=== PATIENT | male | born 1965 | race Caucasian/White ===

== ENCOUNTER 2017-06-29 22:00 | Emergency (ER) | payer SELFPAY ==
[2017-06-29 22:19] VITALS: BP 111/62; PULSE 103; RESP 18; TEMP 98.6; O2SAT 98
--- NOTE | 2017-06-29 22:26 | PD ---
HPI Chief Complaint: OD/ Ingestion Time Seen by Provider: 22:18 Travel History International Travel<30 days: No Contact w/Intl Traveler<30days: No History of Present Illness HPI 52-year-old male brought in by ambulance under arrest for domestic battery. Patient originally was picked up with reports of taking "a bunch of pills", when she was picked up by the ambulance and they were going to stick it with a needle, he stated "what are you going to do For?" Patient then stated to the EMS personnel that he did not take anything, and that he "wanted to be somewhere for the store". He currently has no complaints, vital signs are stable, but he is currently under arrest and police are present. He has no known drug allergies. PFSH Past Medical History Asthma: Yes Ulcer: Yes Social History Alcohol Use: No Tobacco Use: Yes Substance Use: No Allergies-Medications (Allergen,Severity, Reaction): Coded Allergies: No Known Allergies (Verified , 06/29/17) Reported Meds & Prescriptions Reported Meds & Active Scripts Active Macrobid (Nitrofurantoin Monohydrate Macrocrystals) 100 Mg Capsule 100 Mg PO BID Review of Systems Except as stated in HPI: all other systems reviewed are Neg General / Constitutional: No: Fever Eyes: No: Visual changes HENT: No: Headaches Cardiovascular: No: Chest Pain or Discomfort Respiratory: No: Shortness of Breath Gastrointestinal: No: Abdominal Pain Genitourinary: No: Dysuria Musculoskeletal: No: Pain Skin: No Rash Neurologic: No: Weakness Psychiatric: No: Depression Endocrine: No: Polydipsia Hematologic/Lymphatic: No: Easy Bruising Physical Exam Narrative GENERAL: Patient is in no acute distress. SKIN: Warm and dry. Normal color. Normal turgor. HEAD: Atraumatic. Normocephalic. EYES: Pupils equal and round. No scleral icterus. No injection or drainage. ENT: No nasal bleeding or discharge. Mucous membranes pink and moist. Pharynx is clear. Airway is patent. NECK: Trachea midline. Supple and nontender. CARDIOVASCULAR: Regular rate and rhythm. No murmurs gallops or rubs. RESPIRATORY: No accessory muscle use. Clear to auscultation. Breath sounds equal bilaterally. GASTROINTESTINAL: Abdomen soft, non-tender, nondistended. Hepatic and splenic margins not palpable. MUSCULOSKELETAL: Extremities without clubbing, cyanosis, or edema. No obvious deformities. NEUROLOGICAL: Awake and alert. No obvious cranial nerve deficits. Motor grossly within normal limits. Five out of 5 muscle strength in the arms and legs. Normal speech. PSYCHIATRIC: Appropriate mood and affect; insight and judgment normal. Data Data Last Documented VS Vital Signs Date Time Temp Pulse Resp B/P (MAP) Pulse Ox O2 Delivery O2 Flow Rate FiO2 06/29/17 23:35 79 18 118/72 (87) 96 06/29/17 22:19 98.6 Orders Orders Complete Blood Count With Diff (06/29/17 22:17) Comprehensive Metabolic Panel (06/29/17 22:17) Urinalysis - C+S If Indicated (06/29/17 22:17) Electrocardiogram (06/29/17 22:17) Cath For Specimen (06/29/17 22:17) Drug Screen, Random Urine (06/29/17 22:17) Salicylates (Aspirin) (06/29/17 22:17) Tylenol (Acetaminophen) (06/29/17 22:17) Urine Culture (06/29/17 22:30) Labs Laboratory Tests Test 06/29/17 22:30 White Blood Count 8.9 TH/MM3 Red Blood Count 4.71 MIL/MM3 Hemoglobin 14.3 GM/DL Hematocrit 42.1 % Mean Corpuscular Volume 89.4 FL Mean Corpuscular Hemoglobin 30.3 PG Mean Corpuscular Hemoglobin Concent 33.9 % Red Cell Distribution Width 13.6 % Platelet Count 241 TH/MM3 Mean Platelet Volume 7.7 FL Neutrophils (%) (Auto) 70.4 % Lymphocytes (%) (Auto) 20.9 % Monocytes (%) (Auto) 7.4 % Eosinophils (%) (Auto) 0.8 % Basophils (%) (Auto) 0.5 % Neutrophils # (Auto) 6.3 TH/MM3 Lymphocytes # (Auto) 1.9 TH/MM3 Monocytes # (Auto) 0.7 TH/MM3 Eosinophils # (Auto) 0.1 TH/MM3 Basophils # (Auto) 0.0 TH/MM3 CBC Comment DIFF FINAL Differential Comment Urine Color YELLOW Urine Turbidity HAZY Urine pH 5.5 Urine Specific [place] 1.042 Urine Protein 100 mg/dL Urine Glucose (UA) NEG mg/dL Urine Ketones TRACE mg/dL Urine Occult Blood NEG Urine Nitrite NEG Urine Bilirubin NEG Urine Urobilinogen 2.0 MG/DL Urine Leukocyte Esterase TRACE Urine RBC 1 /hpf Urine WBC 10 /hpf Urine Mucus FEW /lpf Microscopic Urinalysis Comment CULTURE INDICATED Blood Urea Nitrogen 27 MG/DL Creatinine 0.94 MG/DL Random Glucose 117 MG/DL Total Protein 6.8 GM/DL Albumin 4.0 GM/DL Calcium Level 8.5 MG/DL Alkaline Phosphatase 61 U/L Aspartate Amino Transf (AST/SGOT) 16 U/L Alanine Aminotransferase (ALT/SGPT) 26 U/L Total Bilirubin 0.4 MG/DL Sodium Level 141 MEQ/L Potassium Level 3.4 MEQ/L Chloride Level 107 MEQ/L Carbon Dioxide Level 24.8 MEQ/L Anion Gap 9 MEQ/L Estimat Glomerular Filtration Rate 84 ML/MIN Salicylates Level 3.5 MG/DL Urine Opiates Screen NEG Acetaminophen Level 2.7 MCG/ML Urine Barbiturates Screen POS Urine Amphetamines Screen NEG Urine Benzodiazepines Screen NEG Urine Cocaine Screen NEG Urine Cannabinoids Screen POS MDM Medical Decision Making Medical Screen Exam Complete: Yes Emergency Medical Condition: Yes Differential Diagnosis Reported possible overdose with current denial. Need for medical clearance for incarceration. Malingering. Narrative Course Patient appears medically stable at time of exam. EKG is ordered. EKG shows normal sinus rhythm without acute changes. Labs ordered including CBC, CMP, urinalysis, urine drug screen, serum salicylates, and serum acetaminophen. CBC is unremarkable. CMP shows slightly low potassium of 3.4, BUN 27, random glucose 117. Urine drug screen shows positive for barbiturates and marijuana. Urinalysis shows specific gravity of 1.042, urine protein is 100, trace ketones , leukocyte esterase. Dr. Cummins did the final disposition for this. She did treat him with Macrobid twice a day for possible UTI. Patient medically cleared for incarceration. Diagnosis Primary Impression: Medical clearance for incarceration Patient Instructions: General Instructions Med/Other Pt SpecificInfo: No Meds Exist/No RX given Scripts Nitrofurantoin Monohydrate Macrocrystals (Macrobid) 100 Mg Capsule 100 MG PO BID for Infection, #6 CAP 0 Refills Prov: Kristi Cummins MD 06/29/17 Disposition: [address] [facility]NF[employer]CEM[facility] Condition: Stable Olivier Dawn Jun 29, 2017 22:26
[2017-06-29 22:53] LABS: BLOOD, URINE NEG (NEG); COMMENT (UR) CULTURE INDICATED; CULTURE IF INDICATED CULTURE INDICATED; GLUCOSE,URINE NEG (NEG); KETONE, URINE TRACE mg/dL (NEG); MUCUS URINE FEW /lpf (OCC); NITRITE,URINE NEG (NEG); PH, URINE 5.5 (5.0-8.5); URINE COLOR YELLOW (YELLW/STRAW)
[2017-06-29 22:54] LABS: AUTOMATED NEUTROPHIL # 6.3 TH/MM3 (1.8-7.7); BASOPHIL % 0.5 % (0.0-2.0); EOSINOPHIL # 0.1 TH/MM3 (0-0.4); EOSINOPHIL % 0.8 % (0.0-4.0); HEMATOCRIT 42.1 % (39.0-51.0); HEMO FLAGS DIFF FINAL; LYMPH % 20.9 % (9.0-44.0); LYMPHOCYTE # 1.9 TH/MM3 (1.0-4.8); MEAN CELL VOLUME 89.4 FL (80.0-100.0); MEAN CORPUSCULAR HEMOGLOBIN 30.3 PG (27.0-34.0); MEAN CORPUSCULAR HGB CONC 33.9 % (32.0-36.0); MONO % 7.4 % (0.0-8.0); NEUT % 70.4 % (16.0-70.0); PLATELET COUNT 241 TH/MM3 (150-450); RED BLOOD COUNT 4.71 MIL/MM3 (4.50-5.90); RED CELL DISTRIBUTION WIDTH 13.6 % (11.6-17.2); WHITE BLOOD COUNT 8.9 TH/MM3 (4.0-11.0)
[2017-06-29 23:12] LABS: ALT (GPT) 26 U/L (12-78); ANION GAP 9 MEQ/L (5-15); AST (GOT) 16 U/L (15-37); BICARBONATE 24.8 MEQ/L (21.0-32.0); BLOOD UREA NITROGEN 27 MG/DL (7-18); CHLORIDE 107 MEQ/L (98-107); GLOMERULAR FILTRATION RATE 84 ML/MIN (>89); POTASSIUM 3.4 MEQ/L (3.5-5.1); SODIUM (NA) 141 MEQ/L (136-145)
[2017-06-29 23:15] LABS: ACETAMINOPHEN 2.7 MCG/ML (10.0-30.0); ALKALINE PHOSPHATASE 61 U/L (45-117); TOTAL BILIRUBIN ADULT 0.4 MG/DL (0.2-1.0)
[2017-06-29] MEDS ORDERED: MACR100C2 PO (23:27)
--- NOTE | 2017-06-29 23:28 | PD ---
Physical Exam Narrative GENERAL: Well-nourished, well-developed patient. SKIN: Warm and dry. HEAD: Normocephalic and atraumatic. EYES: No injection or drainage. ENT: No nasal drainage noted. NECK: Supple, trachea midline. CARDIOVASCULAR: Regular rate and rhythm RESPIRATORY: no increased effort. No accessory muscle use. GASTROINTESTINAL: Abdomen soft, non-tender, nondistended. NEUROLOGICAL: Awake and alert. Motor and sensory grossly within normal limits. Normal speech. Data Data Last Documented VS Vital Signs Date Time Temp Pulse Resp B/P (MAP) Pulse Ox O2 Delivery O2 Flow Rate FiO2 06/29/17 22:23 101 18 06/29/17 22:19 98.6 111/62 (78) 98 Orders Orders Complete Blood Count With Diff (06/29/17 22:17) Comprehensive Metabolic Panel (06/29/17 22:17) Urinalysis - C+S If Indicated (06/29/17 22:17) Electrocardiogram (06/29/17 22:17) Cath For Specimen (06/29/17 22:17) Drug Screen, Random Urine (06/29/17 22:17) Salicylates (Aspirin) (06/29/17 22:17) Tylenol (Acetaminophen) (06/29/17 22:17) Urine Culture (06/29/17 22:30) Labs Laboratory Tests Test 06/29/17 22:30 White Blood Count 8.9 TH/MM3 Red Blood Count 4.71 MIL/MM3 Hemoglobin 14.3 GM/DL Hematocrit 42.1 % Mean Corpuscular Volume 89.4 FL Mean Corpuscular Hemoglobin 30.3 PG Mean Corpuscular Hemoglobin Concent 33.9 % Red Cell Distribution Width 13.6 % Platelet Count 241 TH/MM3 Mean Platelet Volume 7.7 FL Neutrophils (%) (Auto) 70.4 % Lymphocytes (%) (Auto) 20.9 % Monocytes (%) (Auto) 7.4 % Eosinophils (%) (Auto) 0.8 % Basophils (%) (Auto) 0.5 % Neutrophils # (Auto) 6.3 TH/MM3 Lymphocytes # (Auto) 1.9 TH/MM3 Monocytes # (Auto) 0.7 TH/MM3 Eosinophils # (Auto) 0.1 TH/MM3 Basophils # (Auto) 0.0 TH/MM3 CBC Comment DIFF FINAL Differential Comment Urine Color YELLOW Urine Turbidity HAZY Urine pH 5.5 Urine Specific [place] 1.042 Urine Protein 100 mg/dL Urine Glucose (UA) NEG mg/dL Urine Ketones TRACE mg/dL Urine Occult Blood NEG Urine Nitrite NEG Urine Bilirubin NEG Urine Urobilinogen 2.0 MG/DL Urine Leukocyte Esterase TRACE Urine RBC 1 /hpf Urine WBC 10 /hpf Urine Mucus FEW /lpf Microscopic Urinalysis Comment CULTURE INDICATED Blood Urea Nitrogen 27 MG/DL Creatinine 0.94 MG/DL Random Glucose 117 MG/DL Total Protein 6.8 GM/DL Albumin 4.0 GM/DL Calcium Level 8.5 MG/DL Alkaline Phosphatase 61 U/L Aspartate Amino Transf (AST/SGOT) 16 U/L Alanine Aminotransferase (ALT/SGPT) 26 U/L Total Bilirubin 0.4 MG/DL Sodium Level 141 MEQ/L Potassium Level 3.4 MEQ/L Chloride Level 107 MEQ/L Carbon Dioxide Level 24.8 MEQ/L Anion Gap 9 MEQ/L Estimat Glomerular Filtration Rate 84 ML/MIN Salicylates Level 3.5 MG/DL Urine Opiates Screen NEG Acetaminophen Level 2.7 MCG/ML Urine Barbiturates Screen POS Urine Amphetamines Screen NEG Urine Benzodiazepines Screen NEG Urine Cocaine Screen NEG Urine Cannabinoids Screen POS MDM Supervised Visit with [facility]: Yes Interpretation(s) CBC & BMP Diagram 06/29/17 22:30 Total Protein 6.8, Albumin 4.0, Calcium Level 8.5, Alkaline Phosphatase 61, Aspartate Amino Transf (AST/SGOT) 16, Alanine Aminotransferase (ALT/SGPT) 26, Total Bilirubin 0.4 ua ?infection no symptoms, will place on 3 day course while await culture Narrative Course I, Dr. norman, have reviewed the advance practice practitioner's documentation and am in agreement, met with the patient face to face, made the diagnosis, and the medical decision making was done by me. *My assessment and Findings: 52-year-old male presents after he initially said that he took pills because he was trying to find a place to stay. Then he was placed under arrest with police and now that he has a place to go he denies taking any medication and denies any active complaints. Labs without emergent findings. Urine questionable infection. He will be cleared to go to [facility] Diagnosis Primary Impression: Medical clearance for incarceration Patient Instructions: General Instructions Additional Instruction: return as needed, follow with primary this week Med/Other Pt SpecificInfo: Prescription(s) given Scripts Nitrofurantoin Monohydrate Macrocrystals (Macrobid) 100 Mg Capsule 100 MG PO BID for Infection, #6 CAP 0 Refills Prov: Kristi Norman MD 06/29/17 Disposition: 70 TRANSFER TO OTHER FACILITY (usp) Condition: Stable Kristi Norman MD Jun 29, 2017 23:28
[2017-06-29 23:35] VITALS: BP 118/72
--- NOTE | 2017-06-30 11:35 | EKG ---
Date Performed: 06/29/2017 Time Performed: 22:32:18 PTAGE: 52 years EKG: Sinus rhythm WITH SHORT RI INTERVAL BORDERLINE ECG PREVIOUS TRACING : 09/05/2016 19.36 No significant change from previous tracing noted. DOCTOR: Nasir Kincaid Interpretating Date/Time 06/30/2017 11:34:10
== END 2017-06-30 00:13 | disposition short-term general hospital (02) ==
LOC: NEPC 22:00
DX: R82.71 Bacteriuria (principal); Z72.0 Tobacco use
CPT/HCPCS: 80053; 80307; 81001; 85025; 87086; 93005; 99284

== ENCOUNTER 2017-08-28 12:28 | Emergency (ER) | payer SELFPAY ==
[~2017-08-28 12:28] MED LIST: MACR100C2 PO
[2017-08-28 12:30] VITALS: BP 146/84; PULSE 88; RESP 14; TEMP 98.2; O2SAT 96
[2017-08-28] MEDS ORDERED: ORPHENADRINE INJ 60 MG/2 ML AMP IM ONE (14:15)
[2017-08-28] MEDS ORDERED: KETOROLAC TROMETHAMINE 60 MG/2 ML (IM) VIAL IM ONE (14:15)
--- NOTE | 2017-08-28 14:16 | PD ---
HPI Chief Complaint: Back/ Neck Pain or Injury Time Seen by Provider: 14:11 Travel History International Travel<30 days: No Contact w/Intl Traveler<30days: No Traveled to known affect area: No History of Present Illness HPI 52-year-old male with history of chronic back pain presents for evaluation of acute exacerbation of chronic back pain. He reports that for 15 years he has suffered from neck and back pain, worse this morning, diagnosed with degenerative disc disease. He reports that it is an aching pain that radiates down the legs. He denies any acute injury. He denies any bowel or bladder incontinence, saddle anesthesia, flank pain, abdominal pain, chest pain or shortness of breath. He has been using ibuprofen but the pain persisted which prompted evaluation. No other complaints at this time. [facility] Past Medical History Asthma: Yes Bipolar Disorder: Yes Anxiety: Yes Depression: Yes Diminished Hearing: No Neurologic: Yes (TOURETTE'S, DEGENERATIVE DISC DISEASE) Schizophrenia: Yes Ulcer: Yes Social History Alcohol Use: No Tobacco Use: Yes (1 PPD) Substance Use: No Allergies-Medications (Allergen,Severity, Reaction): Coded Allergies: No Known Allergies (Verified , 06/29/17) Reported Meds & Prescriptions Reported Meds & Active Scripts Active No Active Prescriptions or Reported Medications Review of Systems Except as stated in HPI: all other systems reviewed are Neg Physical Exam Narrative GENERAL: Well-developed well-nourished male in no acute distress SKIN: Warm and dry. HEAD: Atraumatic. Normocephalic. EYES: Pupils equal and round. No scleral icterus. No injection or drainage. ENT: No nasal bleeding or discharge. Mucous membranes pink and moist. NECK: Trachea midline. No JVD. CARDIOVASCULAR: Regular rate and rhythm. No murmur appreciated. RESPIRATORY: No accessory muscle use. Clear to auscultation. Breath sounds equal bilaterally. GASTROINTESTINAL: Abdomen soft, non-tender, nondistended. Hepatic and splenic margins not palpable. MUSCULOSKELETAL: No obvious deformities. No clubbing. No cyanosis. No edema. No reproducible tenderness to palpation to the neck or back. NEUROLOGICAL: Awake and alert. No obvious cranial nerve deficits. Motor grossly within normal limits. Normal speech. PSYCHIATRIC: Appropriate mood and affect; insight and judgment normal. Data Data Last Documented VS Vital Signs Date Time Temp Pulse Resp B/P (MAP) Pulse Ox O2 Delivery O2 Flow Rate FiO2 08/28/17 12:30 98.2 88 14 146/84 (104) 96 Orders Orders Ketorolac Inj (Toradol Inj) (08/28/17 14:15) Orphenadrine Inj (Norflex Inj) (08/28/17 14:15) Ed Discharge Order (08/28/17 14:13) [facility] Medical Decision Making Medical Screen Exam Complete: Yes Emergency Medical Condition: Yes Medical Record Reviewed: Yes Differential Diagnosis Degenerative disc disease, herniated nucleus pulposus, spinal stenosis, compression fracture, epidural abscess Narrative Course His history and examination are consistent with acute exacerbation of chronic back pain. He will be given injections of Toradol and Norflex here. He is stable for discharge. Diagnosis Primary Impression: Back pain Qualified Codes: M54.9 - Dorsalgia, unspecified; G89.29 - Other chronic pain Additional Instructions: Take Tylenol or ibuprofen for pain. Avoid strenuous activity. Follow-up with primary care. Return for any emergent medical conditions. Med/Other Pt SpecificInfo: No Change to Meds Scripts No Active Prescriptions or Reported Meds Disposition: 01 DISCHARGE HOME Condition: Stable Bhavesh Keita Aug 28, 2017 14:16
== END 2017-08-28 14:28 | disposition home or self-care (01) ==
LOC: NEPK 12:28
DX: M54.9 Dorsalgia, unspecified (principal); G89.29 Other chronic pain; F17.200 Nicotine dependence, unspecified, uncomplicated
CPT/HCPCS: 96372; 99284; J1885; J2360